=== PATIENT | male | born 2000 | race Caucasian/White ===

== ENCOUNTER 2022-10-24 20:58 | Emergency (ER) | payer OTHER, SELFPAY ==
[2022-10-24 21:09] VITALS: BP 132/72; PULSE 93; RESP 18; O2SAT 98; BMI 22.3
--- NOTE | 2022-10-24 22:02 | ED.WOUNDLAC ---
HPI - Wound/Laceration General Chief Complaint: Wound/Laceration Stated Complaint: Leg inj Time Seen by Provider: 10/24/22 21:23 Source: patient Mode of arrival: Wheelchair Limitations: no limitations History of Present Illness HPI narrative: Patient is a 22-year-old male here for evaluation of a cut to his left leg. He states he was trying to cut an object when it slipped and he cut his leg. He was wearing long pants of the time. He is up-to-date on his tetanus. Event occurred just prior to arrival. Related Data Home Medications Medication Instructions Recorded Confirmed No Known Home Medications 10/24/22 10/24/22 Allergies Allergy/AdvReac Type Severity Reaction Status Date / Time No Known Drug Allergies Allergy Verified 10/24/22 21:12 Review of Systems Musculoskeletal Musculoskeletal: Reports system reviewed and no additional complaints, except as documented Integumentary/Breasts Skin/Breast: Reports system reviewed and no additional complaints, except as documented Neurologic Neurologic: Reports system reviewed and no additional complaints, except as documented Hematologic/Lymphatic On Anticoagulants: No Exam Initial Vital Signs Initial Vital Signs: Vital Signs Pulse Rate 93 H 10/24/22 21:09 Respiratory Rate 18 10/24/22 21:09 Blood Pressure 132/72 10/24/22 21:09 Pulse Oximetry 98 10/24/22 21:09 Oxygen Delivery Method Room Air 10/24/22 21:09 Skin Other: 4 cm laceration to the anterior/medial aspect of the left mid thigh. Neuro Sensory Exam: no sensory deficits noted Extrem Other: Full range of motion of left knee. Procedures Laceration Repair Laceration 1: Site: lower extremity Side (If applicable): left Size (cm): 4 Description: linear Depth: simple, single layer Local Anesthetic: lidocaine 1% Amount of anesthesia used (mL): 6 Pre-repair: wound explored, irrigated extensively and deep structures intact Skin layer closed with: nylon Skin layer suture size: 4-0 Number of sutures: 12 Technique: simple, interrupted Course Orders Ordered: Discontinued Medications Bacitracin (Bacitracin Oint 0.9 Gm Pckt) 1 applic TOP NOW ONE Stop: 10/24/22 22:46 Last Admin: 10/24/22 22:50 Dose: 1 applic Documented By: SARAH Vital Signs Vital signs: Vital Signs - 8 hr 10/24/22 21:09 10/24/22 22:55 Pulse Rate 93 H 70 Respiratory Rate 18 16 Blood Pressure 132/72 122/61 Pulse Oximetry 98 99 Oxygen Delivery Method Room Air Room Air MDM - Wound/Laceration MDM Narrative Medical decision making narrative: Laceration to left anterior thigh that was closed as described above. Does not appear to be any deep structures that are affected. Indication for antibiotics. He is up-to-date on his tetanus. He was given care instructions and return precautions. He expressed understanding and agreement. Discharge Plan Departure Patient Disposition: Home Clinical Impression: Laceration Instructions: DI for Laceration Repair Activity Restrictions/Additional Instructions: The stitches do need to be removed in the next 7-10 days. You can either go to your primary doctor or the walk-in clinic for this. I recommend that you keep a topical antibiotic ointment over the area such as bacitracin. You can purchase this [id number]. You can shower like normal. You can use soap and water like normal. Return to the emergency department for new or worsening symptoms. Prescriptions: No Action No Known Home Medications Stand Alone Forms: Patient Portal/API
[2022-10-24] MEDS: BACITRACIN OINT 0.9 GM PCKT 1 APPLIC TOP (22:50)
[2022-10-24 22:55] VITALS: BP 122/61; PULSE 70; RESP 16; O2SAT 99
== END 2022-10-24 22:58 | disposition home or self-care (01) ==
PROVIDERS: Emergency Provider Emergency Medicine
DX: S81.812A Laceration without foreign body, left lower leg, initial encounter (principal); W26.9XXA Contact with unspecified sharp object(s), initial encounter; Y99.0 Civilian activity done for income or pay
CPT/HCPCS: 12002; 99283